=== PATIENT | female | born 1960 | race Caucasian/White ===

== ENCOUNTER 2018-08-12 18:11 | Emergency (ER) | payer SELFPAY ==
[~2018-08-12] VITALS: Ht 170.2 cm; Wt 122.5 kg
[2018-08-12 18:11] VITALS: Ht 170.2 cm; Wt 122.5 kg
[2018-08-12 20:24] VITALS: BP 158/94
== END 2018-08-12 20:24 | disposition home or self-care (01) ==
LOC: ED 18:11
DX: S80.01XA Contusion of right knee, initial encounter (principal); W01.0XXA Fall on same level from slipping, tripping and stumbling without subsequent striking against object, initial encounter; Y93.89 Activity, other specified; Y92.89 Other specified places as the place of occurrence of the external cause; Y99.8 Other external cause status